=== PATIENT | female | born 1955 | race African-American/Black ===

== ENCOUNTER 2018-07-01 15:51 | Inpatient (IN) | payer BC ==
[~2018-07-01] VITALS: Ht 162.6 cm; Wt 86.6 kg
[2018-07-01 15:55] VITALS: Ht 162.6 cm; Wt 86.6 kg
[2018-07-01 17:15] LABS: BASOPHIL % 1.9 % (0-2); PLATELET COUNT 246 x10^3mcL (130-400)
[2018-07-01 17:35] LABS: CALCIUM 9.4 mg/dL (8.5-10.1); CARBON DIOXIDE 27.9 mmol/L (21-32); CREATININE SERUM 1.3 mg/dL (0.6-1.0); POTASSIUM SERUM 4.1 mmol/L (3.5-5.1)
[2018-07-01 17:38] LABS: ALBUMIN 3.6 g/dL (3.4-5.0); BILIRUBIN TOTAL 0.79 mg/dL (0.20-1.00); TOTAL PROTEIN, SERUM 7.4 g/dL (6.4-8.2)
[2018-07-01 17:48] LABS: RED CELL DISTRIBUTION WIDTH 14.9 % (11.5-14.5)
[2018-07-01 17:57] LABS: microscopic required? NO
[2018-07-01 18:17] LABS: UA SPECIFIC GRAVITY 1.025 (1.005-1.035); urine erythrocyte NEGATIVE (NEGATIVE)
[2018-07-01 18:25] LABS: AMPHETAMINE QUAL UR NONE DETECTED (See below)
[2018-07-01] MEDS ORDERED: LOSARTAN POTAS100 M1 PO (19:23)
[2018-07-01] MEDS ORDERED: HYDROCHLOROTH12.5 M2 PO (19:24)
[2018-07-01] MEDS ORDERED: ASPIR LOW81 MG PO (19:24)
[2018-07-01] MEDS ORDERED: METOPROLOL TART25 M1 PO (19:25)
[2018-07-01] MEDS ORDERED: ATORVASTATIN CA40 M1 PO (19:25)
[2018-07-01] MEDS ORDERED: PAXIL10 MG PO (19:25)
[2018-07-01] MEDS ORDERED: LANTUS SOLOS100 U/M1 SQ (19:26)
[2018-07-01] MEDS ORDERED: METFORMIN HCL500 MG PO (19:26)
[2018-07-01] MEDS ORDERED: [UNRECOGNIZED DRUG - CODE] TD (19:27)
[2018-07-01] MEDS ORDERED: TRULICITY1.5 MG/0.5 SC (19:27)
[2018-07-01 20:29] VITALS: BP 214/85
[2018-07-01 20:57] LABS: T3 TOTAL 1.14 ng/mL
[2018-07-01 21:06] LABS: FREE T4 0.95 ng/dL (0.76-1.46); FREE THYROXINE INDEX 2.9 ug/dL (1.4-4.5); T4(THYROXINE) 9.2 ug/dL (4.7-13.3)
[2018-07-01 21:31] LABS: MAGNESIUM 1.8 mg/dL (1.8-2.4); PHOSPHOROUS 3.3 mg/dL (2.5-4.9)
[2018-07-01 22:20] VITALS: BP 186/74
[2018-07-01 23:45] VITALS: BP 158/65
[2018-07-02] VITALS (9 sets, daily range): BP systolic 136–190; BP diastolic 62–89
[2018-07-02 07:29] LABS: CARBON DIOXIDE 26.4 mmol/L (21-32); CREATININE SERUM 1.3 mg/dL (0.6-1.0); MAGNESIUM 1.7 mg/dL (1.8-2.4); POTASSIUM SERUM 3.4 mmol/L (3.5-5.1)
[2018-07-02 07:34] LABS: BASOPHIL % 0.5 % (0-2); PLATELET COUNT 225 x10^3mcL (130-400)
[2018-07-03 01:30] VITALS: BP 170/71
[2018-07-03 05:35] VITALS: BP 165/84
[2018-07-03 08:40] VITALS: BP 185/84
[2018-07-03 12:54] VITALS: BP 149/75
[2018-07-03 14:40] VITALS: BP 149/75
== END 2018-07-03 15:05 | disposition home or self-care (01) | DRG 305 ==
LOC: ED 15:51 → DU 18:16
PROVIDERS: Emergency Medicine; Family Medicine
DX: I16.0 Hypertensive urgency (principal); I24.8 Other forms of acute ischemic heart disease; E11.65 Type 2 diabetes mellitus with hyperglycemia; E66.9 Obesity, unspecified; I25.10 Atherosclerotic heart disease of native coronary artery without angina pectoris; I10 Essential (primary) hypertension; Z95.1 Presence of aortocoronary bypass graft; Z90.710 Acquired absence of both cervix and uterus; Z79.82 Long term (current) use of aspirin; Z79.899 Other long term (current) drug therapy; Z79.4 Long term (current) use of insulin; Z87.891 Personal history of nicotine dependence; Z72.89 Other problems related to lifestyle; Z68.32 Body mass index [BMI] 32.0-32.9, adult
CPT/HCPCS: 83880; 84439; J1885; J2270; J7030; Q0092

== ENCOUNTER 2020-10-31 13:23 | Emergency (ER) | payer BC, SELFPAY ==
[~2020-10-31] VITALS: Ht 162.6 cm; Wt 88.5 kg
[~2020-10-31 13:23] MED LIST: ASPIR LOW81 MG PO; ATORVASTATIN CA40 M1 PO; HYDROCHLOROTH12.5 M2 PO; LANTUS SOLOS100 U/M1 SQ; LOSARTAN POTAS100 M1 PO; METFORMIN HCL500 MG PO; METOPROLOL TART25 M1 PO; PAXIL10 MG PO; TRULICITY1.5 MG/0.5 SC; [UNRECOGNIZED DRUG - CODE] TD
[2020-10-31 13:34] VITALS: Ht 162.6 cm; Wt 88.5 kg
[2020-10-31 15:11] LABS: BASOPHIL % 0.4 % (0-2); PLATELET COUNT 188 x10^3mcL (130-400)
[2020-10-31 15:17] LABS: RED CELL DISTRIBUTION WIDTH 14.8 % (11.5-14.5)
[2020-10-31 15:27] LABS: CALCIUM 9.1 mg/dL (8.5-10.1); CARBON DIOXIDE 23.8 mmol/L (21-32); CREATININE SERUM 1.8 mg/dL (0.6-1.0); POTASSIUM SERUM 4.1 mmol/L (3.5-5.1)
[2020-10-31 15:38] LABS: UA SPECIFIC GRAVITY >=1.030 (1.005-1.035); microscopic required? YES; urine erythrocyte 3+ (NEGATIVE)
[2020-10-31 17:46] VITALS: BP 157/68
== END 2020-10-31 17:24 | disposition home or self-care (01) ==
LOC: ED 13:23
PROVIDERS: Emergency Medicine
DX: R31.9 Hematuria, unspecified (principal); I10 Essential (primary) hypertension; E11.9 Type 2 diabetes mellitus without complications; E78.00 Pure hypercholesterolemia, unspecified; Z90.710 Acquired absence of both cervix and uterus; Z98.890 Other specified postprocedural states
CPT/HCPCS: J7030